=== PATIENT | female | born 1945 | race Caucasian/White ===

== ENCOUNTER → 2017-09-11 | Outpatient (CLI) | payer OTHER | LOC: FIMAGING 14:12 | PROVIDERS: ATTEND Family Medicine | DX: Z12.31 Encounter for screening mammogram for malignant neoplasm of breast (principal) | CPT/HCPCS: G0202 ==

== ENCOUNTER → 2018-02-20 | Outpatient (CLI) | payer OTHER | LOC: FIMAGING 15:40 | PROVIDERS: ATTEND Family Medicine | DX: J32.2 Chronic ethmoidal sinusitis (principal); H93.19 Tinnitus, unspecified ear; R20.2 Paresthesia of skin; S09.90XA Unspecified injury of head, initial encounter ==

== ENCOUNTER → 2018-02-27 | Outpatient (CLI) | payer OTHER | LOC: FIMAGING 14:36 | PROVIDERS: ATTEND Family Medicine | DX: I70.8 Atherosclerosis of other arteries (principal); I77.1 Stricture of artery ==

== ENCOUNTER → 2018-09-15 | Outpatient (CLI) | payer OTHER | LOC: CIMAGING 14:26 | PROVIDERS: ATTEND Family Medicine | DX: Z12.31 Encounter for screening mammogram for malignant neoplasm of breast (principal) ==

== ENCOUNTER → 2018-12-25 | Outpatient (CLI) | payer OTHER ==
[~2018-12-25] MED LIST: IOPAMIDOL (ISOVUE-300) 100 ML BTL ONE
== END ==
LOC: CIMAGING 15:20
PROVIDERS: ATTEND Family Medicine
DX: J44.9 Chronic obstructive pulmonary disease, unspecified (principal); J42 Unspecified chronic bronchitis; K44.9 Diaphragmatic hernia without obstruction or gangrene
CPT/HCPCS: 71046-PO; Q9967

== ENCOUNTER → 2019-01-26 | Outpatient (CLI) | payer OTHER | LOC: CIMAGING 16:20 | PROVIDERS: ATTEND Family Medicine | DX: J18.9 Pneumonia, unspecified organism (principal); J44.9 Chronic obstructive pulmonary disease, unspecified; K44.9 Diaphragmatic hernia without obstruction or gangrene | CPT/HCPCS: 71046-PO ==